=== PATIENT | male | born 1970 | race Caucasian/White ===

== ENCOUNTER 2023-12-08 21:34 | Inpatient (IN) | payer OTHER, SELFPAY ==
[2023-12-08 16:44] VITALS: BP 138/96
[2023-12-08 17:10] LABS: % Basophils 0.3 % (0-2); % Immature Granulocytes 0.8 % (0-0.5); % Lymphocytes 6.9 % (20.5-51.1); % Monocytes 2.9 % (1.7-9.3); % Neutrophils 89.1 % (42.2-75.2); Absolute Immature Granulocytes 0.1 10^3/uL (0-0.05); Absolute Lymphocytes 0.9 10^3/uL (1.2-3.4); Absolute Monocytes 0.4 10^3/uL (0.1-0.6); Absolute Neutrophils 11.7 10^3/uL (1.4-6.5); Hematocrit 41.1 % (39.0-52.0); Hemoglobin 14.6 g/dL (13.0-18.0); Mean Corp Hgb Conc. 35.5 g/dL (33.0-37.0); Mean Corpuscular Hgb 31.3 pg (27.0-31.0); Mean Corpuscular Volume 88.2 fL (80.0-94.0); Mean Platelet Volume 8.7 fL (7.4-10.4); Nucleated Red Blood Cells % 0 % (-); Platelet Count 176 10^3/uL (130-400); Red Blood Cell Count 4.66 10^6/uL (4.70-6.10); Red Cell Dist. Width 15.9 % (11.5-14.5); White Blood Cell Count 13.1 10^3/uL (4.8-10.8)
[2023-12-08 17:24] LABS: Lactic Acid 0.9 mmol/L (0.7-2.0)
[2023-12-08 17:26] LABS: ALT (SGPT) 29 U/L (0-50); AST (SGOT) 39 U/L (17-59); Albumin 4.1 g/dl (3.5-5.0); Alkaline Phosphatase 92 U/L (38-126); Blood Urea Nitrogen 12 mg/dl (9-20); Calcium 9.1 mg/dl (8.4-10.2); Carbon Dioxide 23 mmol/L (22-30); Chloride 103 mmol/L (98-107); Glucose 111 mg/dl (70-99); Potassium 3.6 mmol/L (3.5-5.1); Sodium 131 mmol/L (135-145); Total Bilirubin 0.4 mg/dl (0.2-1.3); Total Protein 6.6 g/dl (6.3-8.2); eGFR > 60.00
[2023-12-08 17:41] VITALS: BMI 29.1
--- NOTE | 2023-12-08 18:24 | ED.GENMED ---
History of Present Illness
General
Chief Complaint: Skin Problem
Source: patient
Exam Limitations: none
Time Seen by Provider: 12/08/23 18:16
History of Present Illness
History of Present Illness:
53-year-old male complaining of redness swelling pain fever left leg. Started in the last 24 hours. No trauma. No history.
Past History
Past History
ED Past Surgical History: Orthopedic
Phy Exam
Physical Exam
Physical Exam:
GENERAL: Alert and oriented in no apparent distress
EYE: Orbits normal.
CARDIAC: Regular rate and rhythm without any obvious murmurs.
LUNGS: Clear breath sounds,normal
ABDOMEN: Soft, without focal tenderness or distention
NEUROLOGICAL: Alert and oriented , grossly non-focal
SKIN: Warm and dry, macular rash left lower extremity. Just above the ankles to just below the knee. Relatively circumferential.
MUSCULOSKELETAL: Moderate swelling left calf.
PSYCH: Normal and appropriate interaction.
Course
Orders/Labs/Results
Orders:
Orders
12/08/23 16:48
Electrocardiogram (*1) Urgent
Reason for Study: Other
Other Reason for Exam: Possible Sepsis
EKG- Treatment ONCE
12/08/23 17:04
Complete Blood Count/With Diff Urgent
Comprehensive Metabolic Panel Urgent
Lactic Acid Q4H
Comment: ON ICE, CANCEL 2ND ORDER IF FIRST LACTIC ACID LEVEL <2
Magnesium Urgent
Comment: ADD ON
Phosphorus Urgent
Comment: ADD ON
12/08/23 18:22
IV Insert/Care/Rem.- Treatment PRN
0.9% Sodium Chloride 1000 ml [Nss] 1,000 ml IV BOLUS
Piperacillin/Tazo 4.5 Gram [Zosyn] 4.5 gram in 100 ml IV NOW
US Periph Venous LOWER Ext LT Urgent
Comment:
Reason For Exam: swelling redness
12/08/23 18:29
Blood Culture Urgent
JENNIFER Source: Blood/Venous
Specimen Description:
12/08/23 20:29
Vancomycin [Vancocin] 2,000 mg 0.9% Sodium Chloride 500 ml [Nss] 500 ml IV NOW
12/08/23 20:43
Acetaminophen [Tylenol] 1,000 mg PO NOW STA
12/08/23 21:03
Admit/Transfer Patient As Directed
Co-Sign Provider:
Level of Care: Inpatient admission
Assign to:: Telemetry
Physician / Group: Nhi Morgan
Diagnosis: sepsis
Reason for Telemetry: Chest Pain syndromes
Date to Stop Telemetry: 12/10/23
Time to Stop Telemetry: 11:00
Reason for Hospitalization: sepsis 2/2 LLE Cellulitis
Expected length of stay greater than two midnights?: Yes
ELOS- Estimated Length of Stay in days: 3
I certify the patient meets the requirements for IP care: Yes
PRN Pain Medication Management As Directed
May give lesser potent ordered pain med per pt: Yes
preference::
Protocol:: Medication orders for pain may be administered in a
manner that supports deferring to patient preference
when the pt is:
- Requesting an ordered lesser potent pain medication.
Least to most potent pain medications are defined
as: acetaminophen < NSAID < tramadol < opioids
(morphine, oxycodone, hydromorphone).
- Requesting a lesser dose of the same medication IF
ORDERED.
- Requesting a less intrusive route of administration
if both routes are prescribed by the provider (PO <
IV).
12/08/23 21:04
Add On- LAB Urgent
Tests Added?: magnesium, phosphorous
Code Status As Directed
Resuscitation Status: Full Code
12/08/23 22:00
Flush (0.9% Sodium Chloride) [Flush (Nss)] See Dose Instructions IV PER PROTOCOL
12/10/23 11:00
DC Protocol for Telemetry ONCE
Abnormal Lab Results
12/08/23
17:04
WBC 13.1 H 10^3/uL
(4.8-10.8)
RBC 4.66 L 10^6/uL
(4.70-6.10)
MCH 31.3 H pg
(27.0-31.0)
RDW 15.9 H %
(11.5-14.5)
Abs Immat Gran (auto) 0.1 H 10^3/uL
(0-0.05)
Absolute Neuts (auto) 11.7 H 10^3/uL
(1.4-6.5)
Absolute Lymphs (auto) 0.9 L 10^3/uL
(1.2-3.4)
Immature Gran % 0.8 H %
(0-0.5)
Neutrophils % 89.1 H %
(42.2-75.2)
Lymphocytes % 6.9 L %
(20.5-51.1)
Sodium 131 L mmol/L
(135-145)
Glucose 111 H mg/dl
(70-99)
12/08/23 17:04
12/08/23 17:04
Vital Signs
Initial and Last Documented VS:
Initial Vital Signs
Temp Pulse Resp BP Pulse Ox
103.1 F H 90 16 138/96 96
12/08/23 16:44 12/08/23 16:44 12/08/23 16:44 12/08/23 16:44 12/08/23 16:44
Last Documented Vital Signs
Temp Pulse Resp BP Pulse Ox
103.1 F H 90 16 138/96 96
12/08/23 16:44 12/08/23 16:44 12/08/23 16:44 12/08/23 16:44 12/08/23 16:44
MDM/Problems Addressed
Differential Diagnosis Includes:
Most consistent with a cellulitis left lower extremity. Ultrasound be done to rule out DVT. Admission IV antibiotics.
*Radiology
Radiology exam reviewed: radiology read reviewed (Negative ultrasound)
*Pulse Oximetry
Patient hypoxic: no
*Critical Care Note
Total Time (30-74mins, 75-104mins- exclusive of procedures): Not Applicable
ED Attending Note
-
Portions of this chart may have been created with voice recognition software.� Occasional wrong word or��sound alike� substitutions may have occurred due to the inherent limitations of voice recognition software.
Discharge Plan
Departure
Patient Disposition: Admit
Date of Disposition: 12/08/23
Time of Disposition: 20:14
Presentation/result/management discussed w/ accepting MD/DO: Hospitalist
Discharge Problem:
Left lower leg cellulitis
Prescriptions:
No Action
nifedipine 30 mg Tablet Extended Release
30 mg PO DAILY
venlafaxine 37.5 mg Capsule,Extended Release 24hr
37.5 mg PO DAILY
Theragen Tablet
1 tab PO DAILY
acetaminophen [Tylenol Extra Strength] 500 mg Tablet
1,000 mg PO Q6HPRN PRN (Reason: mild pain)
albuterol sulfate 90 mcg/actuation Hfa Aerosol Inhaler
2 puff INHALATION R Q6HPRN PRN (Reason: sob)
[id number] serr [Osteo Bi-Flex (5-Loxin)] 1,500-400-100 mg-unit-mg Tablet
1 tab PO DAILY
Referrals:
Mark Sanford MD [Family Provider] -
Interventions
Interventions:
*Risk Screen - Suicide Last Done: 12/08/23 16:44
*General Assessment Last Done: 12/08/23 17:41
*Neglect/Abuse Screening Last Done: 12/08/23 16:44
ED- Fall Risk Assessment Last Done: 12/08/23 17:41
*ED COVID-19 Vaccine History Last Done: 12/08/23 17:41
ED-Skin Assessment Last Done: 12/08/23 17:41
Discharge Date and Time
Print Language: TANZANIAN
[2023-12-08] MEDS: ZOSYN 100 IV (18:34)
[2023-12-08] MEDS: NSS 1000 IV (18:34)
--- NOTE | 2023-12-08 20:44 | HPS.HSE ---
Family Physician
-
Family Physician: Mark Safnord
Chief Complaint
-
redness and swelling of left leg
History of Present Illness
Mr. Fausto Oconnor is a 53 yo man with hx HTN, tobacco use, daily alcohol use presents to the ER with LLE swelling and pain.
Patient states he noticed a fever yesterday and then today noticed pain and redness of LLE. Area is erythematous with darker areas of maculopapular rash. No hx trauma or cuts to area. No hx cellulitis area before.
He has mild headache, no nausea/vomiting, no chest pain, no abdominal pain. No shortness of breath.
He smokes a pack and a half of cigarettes a day and drinks 5-6 drinks of alcohol per day. States last time he didn't drink was when he was sick one year ago.
Medical History
Past Medical History
Past Medical History: Reports HTN
Past Surgical History: Reports Orthopedic
Social History
Tobacco: Smoker
Alcohol: Daily
Family History
Family History: Not pertinent
Allergies / Home Medications
Allergies reflects when Allergies were last updated in [employer].
Home Medications with original date entered in [employer]
Allergy/Medication List:
Allergies
Allergy/AdvReac Type Severity Reaction Status Date / Time
No Known Allergies Allergy Unverified 12/08/23 16:46
Home Medications
acetaminophen 500 mg tablet (Tylenol Extra Strength) 1,000 mg PO Q6HPRN PRN mild pain 12/08/23
albuterol sulfate 90 mcg/actuation aerosol inhaler 2 puff inhalation R Q6HPRN PRN sob 12/08/23
glucosamine [id number]-Ahxbzshpu carey 1,500 mg-400 unit-100 mg tablet (Osteo Bi-Flex (5-Loxin)) 1 tab PO DAILY 12/08/23
nifedipine 30 mg tablet,extended release 30 mg PO DAILY 12/08/23
therapeutic multivitamin 1 tab PO DAILY 12/08/23
venlafaxine 37.5 mg capsule,extended release 24 hr 37.5 mg PO DAILY 12/08/23
Review of Systems
-
History Source: Patient
A 12 point ROS was completed and negative except as noted: Yes
Physical Exam
Vital Signs
Vital Signs
Temp Pulse Resp BP Pulse Ox
103.1 F H 90 16 138/96 96
12/08/23 16:44 12/08/23 16:44 12/08/23 16:44 12/08/23 16:44 12/08/23 16:44
Physical Exam
General: No Apparent Distress
HEENT: PERRLA
Respiratory: Wheezes (mild end expiratory )
Cardiac: S1/S2 and Regular Rhythm
GI: Soft and Non Tender
Musculoskeletal: Other (LLE with erythema and maculopapular rash. swelling, mildly tender, no area of induration)
Skin: Warm and Dry; No Rash
Neuro: AO x 3
Psych: Calm
Laboratory Results
-
12/08/23 17:04
12/08/23 17:04
Laboratory Results
Lactic Acid 0.9 mmol/L (0.7-2.0) 12/08/23 17:04
Total Bilirubin 0.4 mg/dl (0.2-1.3) 12/08/23 17:04
AST 39 U/L (17-59) 12/08/23 17:04
ALT 29 U/L (0-50) 12/08/23 17:04
Alkaline Phosphatase 92 U/L (38-126) 12/08/23 17:04
Data Reviewed
-
Diagnostic Radiology: Report Reviewed by me
Lab Data: Labs Reviewed by me
Impression/Plan
-
Mr. Fausto Oconnor is a 53 yo man with hx HTN, tobacco use, daily alcohol use presents to the ER with LLE swelling and pain.
Triage VS: T 103.1, P 90, RR 16, BP 138/96, SpO2 96%
LABS: WBC 13.1, Hg 14.6, PLT 176, Na 131, K+ 3.6, Cl 103, BUN 12, Cr 0.7, Glucose 111, Ca 9.1, T. Bili 0.4, AST 39, ALT 29, Alk Phos 92
LE US: IMPRESSION: No evidence of deep venous thrombosis of the left lower extremity.
Sepsis
LLE Cellulitis
-lactate 0.9
-LE US without e/o DVT
-admit to tele
-follow up blood culture
-s/p IV Vanc/Zosyn in ER will continue IV Vanc/Cefazolin
-LLE Elevation
-IVF
Alcohol Abuse
-patient reports drinking 5-6 alcoholic drinks today, last one earlier. no current e/o withdrawal
-MSAS protocol with PRN ativan
-thiamine/folate
-IVF
-alcohol cessation counseling
Tobacco Use
-patient smokes 1.5 packs/day
-mild wheezing on exam, no sx
-PRN albuterol
-nicotine patch
-smoking cessation counseling
DVT PPx Lovenox subQ
FULL CODE
76 minutes spent on patient evaluation, medical decision making, coordination of care
[2023-12-08] MEDS: TYLENOL 1000 MG PO (20:59)
[2023-12-08] MEDS: VANCOCIN 540 MG IV (21:03)
[2023-12-08 21:39] LABS: Magnesium 1.9 mg/dl (1.6-2.3); Phosphorus 2.7 mg/dl (2.5-4.5)
[2023-12-08 22:00] VITALS: BP 148/92
[2023-12-08 22:52] LABS: Urine Albumin Trace (Neg - Trace); Urine Bilirubin Negative (Negative); Urine Character Clear (Clear); Urine Color Yellow; Urine Glucose Negative (Negative); Urine Ketone Negative (Negative); Urine Leukocyte Negative (Negative); Urine Nitrite Negative (Negative); Urine Occult Blood Negative (Negative); Urine Urobilinogen Negative (Neg - 1+)
--- NOTE | 2023-12-08 22:56 | PHA.VAN.IN ---
Assessment
- Assessment
Renal Function: Unknown baseline
Concomitant Antimicrobials: ANCEF
- Previous Dosing Experience
Previous Regimen: NONE
AUC Dosing Plan
- Dosing Variables
Dosing Weight (kg): 89.9
Dosing CrCl (ml/min): 100
Vd coefficient (L/kg): 0.7
- Empiric Dosing
Initial / Loading Dose: 2GM
Maintenance Regimen: 1500MG IV Q12H
Estimated AUC (mcg*h/mL): 581
Estimated Peak (mcg*h/mL): 36.7
Estimated Trough (mcg/ml): 14.7
Estimated Half Life (H): 7.9
Pharmacokinetics Vancomycin I
- -
Patient Age: 53
Patient Sex: Male
Vancomycin Day #: 1
Indication: Skin And Soft Tissue (LLE CELLULITIS; SEPSIS)
Requesting Provider: DARSHAN
Height / Weight:
Height 5 ft 9 in
Actual Weight 89.3 kg
Pertinent Past Medical History: ALCOHOL USE DISORDER
- Vital Signs / Lab Results
Temp Pulse Resp BP Pulse Ox
103.1 F H 118 20 148/92 96
12/08/23 16:44 12/08/23 22:00 12/08/23 22:00 12/08/23 22:00 12/08/23 22:00
Lab Results - Hematology
12/08/23
17:04
WBC 13.1 H
Lab Results - Chemistry
12/08/23
17:04
BUN 12
Creatinine 0.7
Albumin 4.1
12/08/23 12/08/23
17:04 21:00
Lactic Acid 0.9 Cancelled
Lab Results - Urine
12/08/23
22:44
Urine Nitrite Negative
Ur Leukocyte Esterase Negative
[2023-12-08 23:00] LABS: Amphetamines Negative (Negative); Barbiturates Negative (Negative); Benzodiazepines Negative (Negative); Buprenorphine Negative (Negative); Cocaine Negative (Negative); Marijuana Positive (Negative); Methadone Negative (Negative); Methamphetamines Negative (Negative); Opiates Negative (Negative); Phencyclidine Negative (Negative); Tricyclic Antidepressants Negative (Negative)
[2023-12-09] VITALS (11 sets, daily range): BP systolic 122–164; BP diastolic 65–113; BMI 28.0
[2023-12-09] MEDS: THIAMINE INJECTION 200 MG IV ×3 (00:30→15:03)
[2023-12-09] MEDS: NSS 1000 IV ×3 (00:30→11:17)
[2023-12-09] MEDS: ANCEF 10 IV ×3 (02:09→17:10)
[2023-12-09] MEDS: VANCOCIN 300 ML IV ×2 (06:34→17:10)
[2023-12-09] MEDS: VANCOCIN 300 MG IV ×2 (06:34→17:10)
[2023-12-09 06:46] LABS: % Basophils 0.3 % (0-2); % Lymphocytes 8.1 % (20.5-51.1); % Monocytes 3.4 % (1.7-9.3); % Neutrophils 87.2 % (42.2-75.2); Absolute Immature Granulocytes 0.1 10^3/uL (0-0.05); Absolute Lymphocytes 1.2 10^3/uL (1.2-3.4); Absolute Monocytes 0.5 10^3/uL (0.1-0.6); Absolute Neutrophils 12.4 10^3/uL (1.4-6.5); Hematocrit 39.4 % (39.0-52.0); Mean Corp Hgb Conc. 35.5 g/dL (33.0-37.0); Mean Corpuscular Hgb 31.4 pg (27.0-31.0); Mean Corpuscular Volume 88.3 fL (80.0-94.0); Mean Platelet Volume 9.9 fL (7.4-10.4); Nucleated Red Blood Cells % 0 % (-); Platelet Count 181 10^3/uL (130-400); Red Blood Cell Count 4.46 10^6/uL (4.70-6.10); Red Cell Dist. Width 15.9 % (11.5-14.5); White Blood Cell Count 14.2 10^3/uL (4.8-10.8)
[2023-12-09 06:55] LABS: ALT (SGPT) 25 U/L (0-50); AST (SGOT) 33 U/L (17-59); Albumin 3.7 g/dl (3.5-5.0); Alkaline Phosphatase 93 U/L (38-126); Blood Urea Nitrogen 8 mg/dl (9-20); Calcium 8.4 mg/dl (8.4-10.2); Carbon Dioxide 22 mmol/L (22-30); Chloride 105 mmol/L (98-107); Estimated Creatinine Clearance 109 ml/min; Glucose 104 mg/dl (70-99); Magnesium 1.9 mg/dl (1.6-2.3); Potassium 3.3 mmol/L (3.5-5.1); Sodium 134 mmol/L (135-145); Total Bilirubin 0.3 mg/dl (0.2-1.3); Total Protein 6.2 g/dl (6.3-8.2); eGFR > 60.00
[2023-12-09] MEDS: FOLVITE 1 MG PO (08:11)
[2023-12-09] MEDS: TYLENOL 650 MG PO ×3 (08:11→20:25)
[2023-12-09] MEDS: PROCARDIA XL (EXTENDED RELEASE) 30 MG PO (08:11)
[2023-12-09] MEDS: NICODERM TRANSDERMAL 21 MG TRANSDERM (08:11)
--- NOTE | 2023-12-09 08:19 | PHA.VAN.FU ---
Vancomycin Assessment / Plan
- Assessment
Renal Function: Stable
WBC's are: Trending Up
In the past 24 hrs, patient has been: Febrile
Concomitant Antimicrobials: cefazolin
- Dosing Plan
Continue: Vanc 1500mg Q12H
- Monitoring Plan
No level(s) ordered at this time: consider levels in next few days
- Follow Up
Pharmacy will continue to follow.
Vancomycin Follow UP
- -
Patient Age: 53
Patient Sex: Male
Vancomycin Day #: 2
Indication: Skin And Soft Tissue
Requesting Provider: Dr. Morgan
Pertinent Antimicrobial Allergies:
NKDA
Height / Weight:
Height 5 ft 9 in
Actual Weight 89.3 kg
Pertinent Past Medical History: BMI ~29
- Vital Signs / Lab Results
Temp Pulse Resp BP Pulse Ox
101.5 F H 109 20 164/113 95
12/09/23 05:55 12/09/23 06:00 12/09/23 06:00 12/09/23 06:00 12/09/23 06:00
Lab Results - Hematology
12/08/23 12/09/23
17:04 05:31
WBC 13.1 H 14.2 H
Lab Results - Chemistry
12/08/23 12/09/23
17:04 05:31
BUN 12 8 L
Creatinine 0.7 0.8
Estimated Creat Clear 109
Albumin 4.1 3.7
12/08/23 12/08/23
17:04 21:00
Lactic Acid 0.9 Cancelled
Lab Results - Urine
12/08/23
22:44
Urine Nitrite Negative
Ur Leukocyte Esterase Negative
--- NOTE | 2023-12-09 08:30 | W.PN.HOSP.TC ---
Today's Communication/Plan
-
see outlined plan
Assessment / Plan
Assessment / Plan
Assessment:
Sepsis POA (fever, leukocytosis, cellulitis)
LLE Cellulitis
- DVT study negative
- continue Vancomycin - requires intensive monitoring
- continue Ancef
- follow cultures
- elevate LLE; apply MICHELLE wraps
Hypokalemia - replete prn
Hyponatremia - improving
Hx of ongoing Alcohol abuse
- 5-6 drinks daily
- monitor with MSAS protocol, IVF, MV/Thiamine/Folate
- cessation counselling provided
Tobacco Use
- patient smokes 1.5 packs/day
- mild wheezing on exam, no sx
- PRN albuterol
- nicotine patch
- smoking cessation counseling
DVT ppx: Lovenox
Code: Full
Anticipated Discharge: 24 - 48 hours
Subjective/Interval History
-
Date of Service: December 09, 2023
fever overnight, improving
reports some improvement in redness/swelling
is compliant with elevation of LLE
denies any tremors or shakes, no withdrawal symptoms per patient and MSAS <5 per RN
Objective Data
-
Labs:
Laboratory Results
12/09/23
05:31
WBC 14.2 H
Hgb 14.0
Hct 39.4
Plt Count 181
Sodium 134 L
Potassium 3.3 L
Chloride 105
Carbon Dioxide 22
BUN 8 L
Creatinine 0.8
Glucose 104 H
Calcium 8.4
Total Bilirubin 0.3
AST 33
ALT 25
Alkaline Phosphatase 93
Vital Signs:
Vital Signs
Temp Pulse Resp BP Pulse Ox
101.5 F H 111 20 149/97 95
12/09/23 05:55 12/09/23 08:11 12/09/23 06:00 12/09/23 08:11 12/09/23 06:00
Physical Exam
-
General: No Apparent Distress
HEENT: Normocephalic and Atraumatic
Respiratory: Clear to Auscultation; Negative Wheezes
Cardiac: Regular Rhythm and S1/S2
GI: Soft and Nontender
Musculoskeletal: Other (LLE redness, erythema, edema to mid-persaud, calf tenderness)
Neuro: AO x 3
Hematologic / Lymphatic: No Lymphadenopathy
Psych: Calm
Data Reviewed
-
Total Time Spent with Patient (in minutes): 51
Labs: Labs Reviewed by me
--- NOTE | 2023-12-09 09:00 | PTCARENOTE ---
Received patient from ED into room 2136. Patient AAOx3, BP 149/97 HR 111 sinus tach on tele monitor, POX 96% on RA, oral temp 101.1F. Patient states no concerns at this time aside from occasional chills and diaphoresis. MSAS score at this time a 4.
MD made aware, patient medicated with PRN tylenol for fever. LLE warm and red, no open areas or drainage noted, leg elevated on 2 pilllows per order. IVF and vanco infusing through L AC, patient oriented to room and call dc, states no concerns at
this time.
[2023-12-09] MEDS: EFFEXOR XR 37.5 MG PO (10:14)
[2023-12-09] MEDS: KCL 40 MEQ PO (10:15)
--- NOTE | 2023-12-09 10:30 | PTCARENOTE ---
Repeat temp at 10:30 AM 100.1F oral. Patient states no concerns at this time.
--- NOTE | 2023-12-09 12:27 | CM ---
Addendum entered by Yas Escobedo 12/09/23 12:55:
Patient declined resources for alcohol cessation and did not want to speak with [facility].
Patient awre of CM availability should needs arise or if he decides he would like information.
[facility]/Carmelita in to see patient.
Original Note:
Patient sleeping.
IA completed with significant other.
Patient independent prior to admission.
Patient works and drives.
No assistive devices.
No Hx VN or skilled rehab.
SO aware of CM availability should needs arise.
CM will return once patient awake to offer [facility] recourses if patient agreeable.
PCP: Dr Sanford
Pharmacy: [facility]
Plan: home, no needs anticipated.
--- NOTE | 2023-12-09 15:00 | PTCARENOTE ---
Addendum entered by Phyllis Gonzalez RN 12/09/23 17:19:
Oral temp at 1700 99.6F. Patient diaphoretic but states no other complaints at this time. MSAS score 4. MD made aware, no new orders at this time.
Addendum entered by Phyllis Gonzalez RN 12/09/23 16:45:
Repeat temp taken one hour later at 1600 by this RN 101.0F oral. Patient states no concerns at this time other than feeling 'warm.' MD made aware, PRN PO ativan given for MSAS score of 6.
Original Note:
Oral temp taken by tech 103.0F, HR in sinus tach 110s on tele monitor. Patient flushed on assessment by this RN, denies diaphoresis, nausea, and tremors, ambulatory to bathroom and states no concerns while OOB. Patient given PRN tylenol by this RN -
see JUL. Ice packs and cold water provided to patient.
[2023-12-09] MEDS: ATIVAN 1 MG PO (16:13)
--- NOTE | 2023-12-09 16:30 | PTCARENOTE ---
Repeat temp at 10:30 AM 100.1F oral. Patient states no concerns at this time.
[2023-12-09] MEDS: LOVENOX 40 MG SC (17:10)
[2023-12-10] MEDS: THIAMINE INJECTION 200 MG IV ×2 (00:13→08:36)
[2023-12-10] MEDS: ANCEF 10 IV ×2 (02:24→09:48)
[2023-12-10 03:20] VITALS: BP 137/81
[2023-12-10] MEDS: VANCOCIN 300 ML IV (06:14)
[2023-12-10] MEDS: VANCOCIN 300 MG IV (06:14)
[2023-12-10 07:52] VITALS: BP 152/94
[2023-12-10] MEDS: NICODERM TRANSDERMAL 21 MG TRANSDERM (08:35)
[2023-12-10] MEDS: PROCARDIA XL (EXTENDED RELEASE) 30 MG PO (08:36)
[2023-12-10] MEDS: EFFEXOR XR 37.5 MG PO (08:36)
[2023-12-10] MEDS: FOLVITE 1 MG PO (08:36)
[2023-12-10 08:46] LABS: Blood Urea Nitrogen 8 mg/dl (9-20); Calcium 8.8 mg/dl (8.4-10.2); Carbon Dioxide 24 mmol/L (22-30); Chloride 105 mmol/L (98-107); Estimated Creatinine Clearance 125 ml/min; Glucose 133 mg/dl (70-99); Potassium 3.4 mmol/L (3.5-5.1); Sodium 136 mmol/L (135-145); eGFR > 60.00
--- NOTE | 2023-12-10 11:07 | W.PN.HOSP.TC ---
Today's Communication/Plan
-
dc to home
Assessment / Plan
Assessment / Plan
Assessment:
Sepsis POA (fever, leukocytosis, cellulitis)
LLE Cellulitis
- DVT study negative
- improving on Vancomycin and Ancef, dc on Cefdinir and Doxy x 10 days
- elevate LLE; apply MICHELLE wraps
- PCP f/u in 3-5 days
Hypokalemia - replete prn
Hyponatremia - improving
Hx of ongoing Alcohol abuse
- 5-6 drinks daily
- monitor with MSAS protocol, IVF, MV/Thiamine/Folate
- cessation counselling provided
Tobacco Use
- patient smokes 1.5 packs/day
- mild wheezing on exam, no sx
- PRN albuterol
- nicotine patch
- smoking cessation counseling
DVT ppx: Lovenox
Code: Full
More than 30 minutes spent in discharge including
Final examination of the patient
Summarizing hospital stay
Instructions for continuing care to all relevant caregivers
Preparation of discharge records, prescriptions, and referral forms
Total time spent (in minutes): 45
Anticipated Discharge: Today
Subjective/Interval History
-
Date of Service: December 10, 2023
pain, swelling, erythema improving
no fevers today
WBC improving down to 11.7
Objective Data
-
Labs:
Laboratory Results
12/10/23
07:56
WBC Pending
Hgb Pending
Hct Pending
Plt Count Pending
Sodium 136
Potassium 3.4 L
Chloride 105
Carbon Dioxide 24
BUN 8 L
Creatinine 0.7
Glucose 133 H
Calcium 8.8
Vital Signs:
Vital Signs
Temp Pulse Resp BP Pulse Ox
99.3 F 103 18 152/94 97
12/10/23 07:52 12/10/23 08:36 12/10/23 07:52 12/10/23 08:36 12/10/23 07:52
I&O
12/09/23 12/10/23 12/11/23
06:59 06:59 06:59
Intake Total 2340 / 2340
Balance 2340 / 2340
Physical Exam
-
General: No Apparent Distress
HEENT: Normocephalic and Atraumatic
Respiratory: Negative Wheezes
Cardiac: Regular Rhythm and S1/S2
GI: Soft
Genito-urinary: No Costovertebral Tender
Musculoskeletal: No Edema
Neuro: AO x 3
Hematologic / Lymphatic: No Lymphadenopathy
Psych: Calm
Data Reviewed
-
Total Time Spent with Patient (in minutes): 45
Labs: Labs Reviewed by me
[2023-12-10 11:10] LABS: Hematocrit 39.8 % (39.0-52.0); Hemoglobin 13.9 g/dL (13.0-18.0); Mean Corp Hgb Conc. 34.9 g/dL (33.0-37.0); Mean Corpuscular Hgb 31.1 pg (27.0-31.0); Mean Platelet Volume 9.5 fL (7.4-10.4); Platelet Count 174 10^3/uL (130-400); Red Blood Cell Count 4.47 10^6/uL (4.70-6.10); Red Cell Dist. Width 15.5 % (11.5-14.5); White Blood Cell Count 11.7 10^3/uL (4.8-10.8)
--- NOTE | 2023-12-10 11:44 | W.DS.TRANS ---
DC Summary - Bed Laster
-
Discharge Instructions:
Discharge Diagnosis/Procedures LLE cellulitis
Diet Regular
Activity As tolerated
Bathing Restrictions None
Instructions:
Stand-Alone Forms:
Changes to Home Medications: No
Discharge Medications:
DC Medications w/original date entered in [employer]
acetaminophen 500 mg tablet (Tylenol Extra Strength) 1,000 mg PO Q6HPRN PRN mild pain 12/08/23
albuterol sulfate 90 mcg/actuation aerosol inhaler 2 puff inhalation R Q6HPRN PRN sob 12/08/23
glucosamine [id number] carey 1,500 mg-400 unit-100 mg tablet (Osteo Bi-Flex (5-Loxin)) 1 tab PO DAILY 12/08/23
nifedipine 30 mg tablet,extended release 30 mg PO DAILY 12/08/23
therapeutic multivitamin 1 tab PO DAILY 12/08/23
venlafaxine 37.5 mg capsule,extended release 24 hr 37.5 mg PO DAILY 12/08/23
cefdinir 300 mg capsule 300 mg PO BID #20 caps 12/10/23
doxycycline monohydrate 100 mg capsule 100 mg PO BID #20 caps 12/10/23
Home Medication Changes
Pending Results: No
Total time spent discharging patient (in min): 45
--- NOTE | 2023-12-10 11:46 | W.DS.TRANS ---
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
-
Discharge Instructions:
Discharge Diagnosis/Procedures LLE cellulitis
Diet Regular
Activity As tolerated
Bathing Restrictions None
Instructions:
Stand-Alone Forms:
Changes to Home Medications: No
Discharge Medications:
DC Medications w/original date entered in [employer]
acetaminophen 500 mg tablet (Tylenol Extra Strength) 1,000 mg PO Q6HPRN PRN mild pain 12/08/23
albuterol sulfate 90 mcg/actuation aerosol inhaler 2 puff inhalation R Q6HPRN PRN sob 12/08/23
glucosamine [id number]-Wvsffloqf carey 1,500 mg-400 unit-100 mg tablet (Osteo Bi-Flex (5-Loxin)) 1 tab PO DAILY 12/08/23
nifedipine 30 mg tablet,extended release 30 mg PO DAILY 12/08/23
therapeutic multivitamin 1 tab PO DAILY 12/08/23
venlafaxine 37.5 mg capsule,extended release 24 hr 37.5 mg PO DAILY 12/08/23
cefdinir 300 mg capsule 300 mg PO BID #20 caps 12/10/23
doxycycline monohydrate 100 mg capsule 100 mg PO BID #20 caps 12/10/23
Home Medication Changes
Pending Results: No
Total time spent discharging patient (in min): 45
[2023-12-10 12:45] LABS: % Basophils 0.3 % (0-2); % Eosinophils 0.1 % (0-6); % Immature Granulocytes 0.4 % (0-0.5); % Lymphocytes 11.9 % (20.5-51.1); % Monocytes 8.2 % (1.7-9.3); % Neutrophils 79.1 % (42.2-75.2); Absolute Immature Granulocytes 0.1 10^3/uL (0-0.05); Absolute Lymphocytes 1.4 10^3/uL (1.2-3.4); Absolute Neutrophils 9.3 10^3/uL (1.4-6.5); Nucleated Red Blood Cells % 0 % (-)
--- NOTE | 2023-12-10 14:32 | CM ---
Reviewed the chart notes. Patient discharged to home today. Patient's significant other providing transportation.
== END 2023-12-10 13:08 | disposition home or self-care (01) | DRG 872 ==
LOC: 2 NORTH 21:34
PROVIDERS: Emergency Medicine; ADMITTING PHYSICIAN Student in an Organized Health Care Education/Training Program; ATTENDING PHYSICIAN Internal Medicine; EMERGENCY PHYSICIAN Emergency Medicine; FAMILY PHYSICIAN Internal Medicine
DX: A41.9 Sepsis, unspecified organism (principal); L03.116 Cellulitis of left lower limb; E87.1 Hypo-osmolality and hyponatremia; F17.200 Nicotine dependence, unspecified, uncomplicated; E87.6 Hypokalemia; F10.10 Alcohol abuse, uncomplicated
CPT/HCPCS: 80048; 80053; 80306; 81003; 83605; 83735; 84100; 85025; 87040; 93005; 93971; 96365; 96366; 96367; 99285; 99406